=== PATIENT | male | born 1985 | race American Indian/Alaskan Native ===

== ENCOUNTER 2021-10-26 23:25 | Emergency (ER) | payer SELFPAY ==
[2021-10-27] MEDS ORDERED: oxyCODONE /ACETAMINOPHEN 5-325MG TAB PO ONE (04:01)
--- NOTE | 2021-10-27 04:37 | XRay Report ---
XR chest 1V ap INDICATION / CLINICAL INFORMATION: Chest pain. COMPARISON: None available. FINDINGS: SUPPORT DEVICES: None. HEART /PULMONARY VASCULATURE: No significant abnormality. LUNGS / PLEURA: No significant pulmonary or pleural abnormality. No pneumothorax. IMPRESSION: 1. No acute findings. Signer Name: Eric Shane MD Signed: 10/27/2021 4:32 AM Workstation Name: [id number]
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
[2021-10-27 05:40] VITALS: BP 112/74
== END 2021-10-27 05:40 | disposition home or self-care (01) ==
LOC: ED 23:25
DX: M79.18 Myalgia, other site (principal); Z79.899 Other long term (current) drug therapy; V87.7XXA Person injured in collision between other specified motor vehicles (traffic), initial encounter; Y93.89 Activity, other specified; Y92.488 Other paved roadways as the place of occurrence of the external cause; Y99.8 Other external cause status
CPT/HCPCS: 71045; 99283